=== PATIENT | female | born 1960 | race African-American/Black ===

== ENCOUNTER 2017-04-02 06:11 | Observation (INO) | payer BC ==
[~2017-04-02] VITALS: Ht 167.6 cm; Wt 70.3 kg
[~2017-04-02 06:11] MED LIST: LANTUS SUBCUT; LATA2.5D3 RIGHTEYE; LISINOPRIL PO; METFORMIN PO; NAPR220C4 PO; SIMVASTATIN PO
[2017-04-02] MEDS ORDERED: IV RINGERS,LACTATED 1000ML 1,000 ML IV SCH (07:00)
[2017-04-02] MEDS ORDERED: fentaNYL PF VIAL 100 MCG/2 ML VIAL IV PRN ×2 (07:00)
[2017-04-02] MEDS ORDERED: PROCHLORPERAZINE 10 MG/2 ML VIAL. IV PRN ×2 (07:00→10:30)
[2017-04-02] MEDS ORDERED: ONDANSETRON PF 4 MG/2 ML VIAL. IV PRN ×2 (07:00→10:30)
[2017-04-02] MEDS ORDERED: MORPHINE SULFATE 2 MG/ML DISP.SYRIN. IV PRN (07:00)
[2017-04-02] MEDS ORDERED: LIDOCAINE 1% 1 ML SYRINGE. ID PRN (07:00)
[2017-04-02] MEDS ORDERED: HYDROmorphone 2 MG/ML VIAL IV PRN (07:00)
[2017-04-02 07:02] LABS: BASO % 1 % (0-3); EOS % 1 % (0-3); HEMATOCRIT 38.8 % (36.0-47.0); HEMOGLOBIN 12.4 g/dL (12.0-15.5); LYMPH # 1.2 x10^3/uL (1.0-4.8); LYMPH % 33 % (24-48); MEAN CORPUSCULAR HEMOGLOBIN 26 pg (25-35); MEAN CORPUSCULAR HGB CONC 32 g/dL (31-37); MEAN CORPUSCULAR VOLUME 82 fL (79-100); MONO % 9 % (0-9); NEUT % 56 % (31-73); PLATELET COUNT 148 x10^3/uL (140-400); RED BLOOD COUNT 4.76 x10^6/uL (3.50-5.40); WHITE BLOOD COUNT 3.6 x10^3/uL (4.0-11.0)
[2017-04-02] MEDS ORDERED: LIDOCAINE 1%/EPI 1:100,000 20 ML VIAL. ONE (08:03)
[2017-04-02] MEDS ORDERED: SEVOFLURANE 61 TO 120 MINUTES. IH ONE (08:24)
[2017-04-02] MEDS ORDERED: DEXAMETHASONE SOD PHOS 20 MG/5 ML VIAL. ONE (08:25)
[2017-04-02] MEDS ORDERED: MIDAZOLAM HCL/PF 2 MG/2 ML VIAL. ONE (08:25)
[2017-04-02] MEDS ORDERED: ONDANSETRON PF 4 MG/2 ML VIAL. ONE (08:25)
[2017-04-02] MEDS ORDERED: LIDOCAINE 2% PF Vial for OR 5 ML VIAL. ONE (08:25)
[2017-04-02] MEDS ORDERED: fentaNYL PF VIAL 100 MCG/2 ML VIAL ONE ×3 (08:25→10:51)
[2017-04-02] MEDS ORDERED: PROPOFOL 20 ML IV ONE (08:25)
[2017-04-02] MEDS ORDERED: ESTROGENS, CONJ VAGINAL CREAM 30GM TUBE. ONE (09:57)
--- NOTE | 2017-04-02 10:19 | PDOC ---
BRIEF OPERATIVE NOTE Pre-Op Diagnosis 1. Old Laceration Pelvic Floor 2. Incompetence Rectovaginal tissue 3. Complete fecal incontinence Post-Op Diagnosis SAme Procedure Performed Posterior Colporrhaphy Surgeon Dr. Cristina Anesthesia Type: General Blood Loss 25 ml Specimens Obtained none Findings incompetence of rectovaginal tissue from old laceration of pelvic floor muscles ; absent perineal body with continuation of rectal mucosa with posterior vaginal wall mucosa up to 2 cm Complications none DANIAL CRISTINA Jr, MD Apr 02, 2017 10:19
[2017-04-02] MEDS ORDERED: CALCIUM CARBONATE 500 MG TAB.CHEW PO PRN (10:30)
[2017-04-02] MEDS ORDERED: ZOLPIDEM 5 MG TABLET. PO PRN (10:30)
[2017-04-02] MEDS ORDERED: diphenhydrAMINE HCL 25 MG CAPSULE PO PRN (10:30)
[2017-04-02] MEDS ORDERED: 0.9 % SODIUM CHLORIDE 10 ML DISP.SYRIN. IV PRN (10:30)
[2017-04-02] MEDS ORDERED: KETOROLAC 30 MG/ML INJ. IV PRN (10:30)
[2017-04-02] MEDS ORDERED: oxyCODONE/APAP 5/325 1 TAB TABLET PO PRN (10:30)
[2017-04-02] MEDS ORDERED: diphenhydrAMINE 50 MG/ML VIAL IV PRN (10:30)
[2017-04-02] MEDS ORDERED: DEXTROSE 50% 25 GM / 50ML DISP.SYRIN. IV PRN (10:30)
[2017-04-02] MEDS ORDERED: SIMETHICONE 80 MG TAB.CHEW PO PRN (10:30)
[2017-04-02 11:08] VITALS: BP 130/85
[2017-04-02 11:25] VITALS: BP 137/83
--- NOTE | 2017-04-02 11:32 | OP ---
DATE OF SURGERY: PREOPERATIVE DIAGNOSES: 1. Old laceration of pelvic floor. 2. Incompetence to rectovaginal tissue. 3. Complete fecal incontinence. POSTOPERATIVE DIAGNOSES: 1. Old laceration of pelvic floor. 2. Incompetence to rectovaginal tissue. 3. Complete fecal incontinence. PROCEDURE: Posterior colporrhaphy. SURGEON: Tobi Cristina MD ANESTHESIA: GETA. ESTIMATED BLOOD LOSS: 25 mL. COMPLICATIONS: None. FINDINGS: Incompetence of the rectovaginal tissue from old laceration of pelvic floor muscles, absent perineal body with continuation of rectal mucosa with the posterior vaginal wall mucosa up to 2 cm. SUMMARY: A 57-year-old female with a 30+ year history of complete rectal incontinence resulting from old laceration of the pelvic floor muscles. The patient was evaluated and recommended to undergo posterior colporrhaphy. Risks, benefits and expectations and voiced a clear understanding to proceed. DESCRIPTION OF PROCEDURE: The patient was taken to surgery suite and placed in dorsal lithotomy position. She was prepped with Betadine solution and draped in standard sterile fashion. After adequate anesthesia, the defect was identified about 2 cm into the posterior vaginal vault in which Allis clamps were utilized to isolate the fibrous tissue that now delineated the rectal mucosa from the vaginal mucosa. This was excised with aid of Allis clamps and scalpel. The posterior vaginal mucosa was then undermined with Metzenbaum scissors. The rectal mucosa was identified within a 2 cm area reapproximated to help recreate the rectal lumen. This was performed with interrupted sutures of 3-0 chromic suture. The rectovaginal fascia was then isolated from the posterior vaginal mucosa. The external anal sphincters were identified with the aid of Allis clamps and reapproximated in an overlapping manner using 2-0 Vicryl suture at the 3 o'clock, 6 o'clock and 12 o'clock positions. The rectovaginal fascia was reapproximated using 2-0 Vicryl suture in interrupted fashion. We then proceeded with the typical repair as if a second degree laceration in which a continuous suture of 2-0 Vicryl suture was utilized to reapproximate the posterior vaginal mucosa reapproximating the bulbospongiosus muscles as well as the newly formed perineal body. Premarin soaked vaginal packing was then placed. The patient tolerated the procedure well and was taken to recovery room in stable condition. Sponge and needle count correct x 3. TOBI CRISTINA MD DR: BEBA/haley JOB#: [id number] / [id number]
[2017-04-02 11:40] VITALS: BP 138/86
[2017-04-02 12:00] VITALS: BP 132/82
[2017-04-02] MEDS ORDERED: GABAPENTIN 300 MG CAPSULE. PO SCH (14:00)
--- NOTE | 2017-04-02 16:21 | DISCH ---
DISCHARGE INSTRUCTIONS Condition on Discharge Condition on Discharge: Stable Activity After Discharge Activity Instructions for Disc: Activity as tolerated Lifting Instructions after Dis: No heavy lifting Driving Instructions after Dis: Do not drive today Diet after Discharge Diet after Discharge: Regular Contacting the DRMarbella after DC Call your doctor for: Concerns you may have Follow-Up Follow up with: Dr. Cristina in 2 weeks. DANIAL CRISTINA Jr, MD Apr 02, 2017 16:21
[2017-04-02] MEDS ORDERED: OXYC-323 PO (16:22)
[2017-04-02] MEDS ORDERED: DOCU-109 PO (16:22)
== END 2017-04-02 17:00 | disposition home or self-care (01) ==
LOC: SURG 06:11 → 3 NORTH 10:30
PROVIDERS: ADMIT Obstetrics & Gynecology; ATTEND Obstetrics & Gynecology
DX: N81.83 Incompetence or weakening of rectovaginal tissue (principal); R15.9 Full incontinence of feces
CPT/HCPCS: 36415; 57210; 82962; 85025; 86850; 86900; 86901; 96374; 96375; G0378; G0379; J0690; J1100; J1170; J1885; J2250; J2405; J2704; J3010; J3490; J7120; J2001